=== PATIENT | female | born 1970 | race Caucasian/White ===

== ENCOUNTER → 2016-12-24 | Outpatient (CLI) | payer OTHER | END | disposition home or self-care (01) | LOC: CDC 11:17 | DX: Z01.810 Encounter for preprocedural cardiovascular examination (principal); D05.12 Intraductal carcinoma in situ of left breast | CPT/HCPCS: 93000 ==

== ENCOUNTER 2017-01-28 07:47 | Day surgery (SDC) | payer OTHER ==
[~2017-01-28] VITALS: Ht 162.6 cm; Wt 69.4 kg
[~2017-01-28 07:47] MED LIST: TYLENOL ARTHRI650 MG PO; VENTOLIN HFA18 GM IH
[2017-01-28] MEDS ORDERED: AMBIEN10 MG PO (08:16)
[2017-01-28 08:33] VITALS: BP 114/72
[2017-01-28 19:15] VITALS: BP 114/61
[2017-01-28 23:20] VITALS: BP 108/61
[2017-01-29 04:55] VITALS: BP 112/68
[2017-01-29 08:00] VITALS: BP 128/89
== END 2017-01-29 12:01 | disposition home or self-care (01) ==
LOC: SDC 07:47 → NUC 10:00 → SDC 10:00 → 2SOUTH 16:18 → 2EASTP 16:18
PROC: 0HR Skin and Breast, Replacement (ICD-10-PCS; principal; 2017-01-28)
PROC: 07B50ZX Excision of Right Axillary Lymphatic, Open Approach, Diagnostic (ICD-10-PCS; principal; 2017-01-28)
PROC: 0HHV0NZ Insertion of Tissue Expander into Bilateral Breast, Open Approach (ICD-10-PCS; principal; 2017-01-28)
PROC: 07B60ZX Excision of Left Axillary Lymphatic, Open Approach, Diagnostic (ICD-10-PCS; principal; 2017-01-28)
PROC: 0HTV0ZZ Resection of Bilateral Breast, Open Approach (ICD-10-PCS; principal; 2017-01-28)
DX: C50.412 Malignant neoplasm of upper-outer quadrant of left female breast (principal); Z17.1 Estrogen receptor negative status [ER-]; N60.11 Diffuse cystic mastopathy of right breast; N60.91 Unspecified benign mammary dysplasia of right breast; N60.21 Fibroadenosis of right breast; D24.1 Benign neoplasm of right breast; Z88.5 Allergy status to narcotic agent
CPT/HCPCS: 78195; 78999; 88305; 88307; 88331; 88332; 88342 TC; A9541; G0378; J0131; J0330; J0690; J1100; J1170; J2175; J2250; J2405; J2710; J7050; S0020

== ENCOUNTER 2017-07-09 12:38 | Day surgery (SDC) | payer OTHER ==
[~2017-07-09] VITALS: Ht 165.1 cm; Wt 72.7 kg
[~2017-07-09 12:38] MED LIST changes: +AMBIEN10 MG PO; +HERCEPTIN10 MG/0.47 IV; +PROCHLORPERAZIN10 MG PO; +TRANSDERM-SCOP1 EACH TD; +XANAX0.5 MG PO
[2017-07-09] MEDS ORDERED: EXTRA STRENGTH500 M1 PO (13:18)
[2017-07-09 13:21] VITALS: BP 100/63
[2017-07-09 18:53] VITALS: BP 127/79
[2017-07-09 19:53] VITALS: BP 104/62
== END 2017-07-09 20:30 | disposition home or self-care (01) ==
LOC: SDC 12:38
DX: Z45.819 Encounter for adjustment or removal of unspecified breast implant (principal); C50.919 Malignant neoplasm of unspecified site of unspecified female breast; Z90.13 Acquired absence of bilateral breasts and nipples; J45.990 Exercise induced bronchospasm
CPT/HCPCS: C1789; J0131; J0690; J1100; J1170; J1885; J2250; J2405; J3010

== ENCOUNTER 2018-04-29 10:03 | Day surgery (SDC) | payer OTHER ==
[~2018-04-29] VITALS: Ht 165.1 cm; Wt 71.0 kg
[~2018-04-29 10:03] MED LIST changes: +EXTRA STRENGTH500 M1 PO
[2018-04-29] MEDS ORDERED: XANAX0.25 MG PO (10:35)
[2018-04-29 10:48] VITALS: BP 106/70
[2018-04-29 13:45] VITALS: BP 106/65
[2018-04-29 14:18] VITALS: BP 105/62
== END 2018-04-29 14:20 | disposition home or self-care (01) ==
LOC: SDC 10:03
PROVIDERS: Surgery Plastic and Reconstructive Surgery
DX: Z45.2 Encounter for adjustment and management of vascular access device (principal); Z92.21 Personal history of antineoplastic chemotherapy; Z85.3 Personal history of malignant neoplasm of breast; J45.990 Exercise induced bronchospasm
CPT/HCPCS: 81025; J0690